=== PATIENT | female | born 1980 | race Caucasian/White ===

== ENCOUNTER 2018-01-15 12:46 | Emergency (ER) | payer MEDICAID ==
[~2018-01-15] VITALS: Ht 170.2 cm; Wt 62.5 kg
[2018-01-15] MEDS ORDERED: PROPARACAINE OPHTH 0.5%, 15ML EACHEYE ONE (14:00)
[2018-01-15] MEDS ORDERED: FLUORESCEIN OPHTHALMIC 1 MG STRIP EACHEYE ONE (14:00)
[2018-01-15] MEDS ORDERED: PROPARACAINE OPHTH 0.5%, 15ML ONE (16:28)
[2018-01-15] MEDS ORDERED: FLUORESCEIN OPHTHALMIC 1 MG STRIP ONE (16:28)
[2018-01-15 16:36] LABS: MICROSCOPIC NOT IND
[2018-01-15 16:42] LABS: CULTURE INDICATED? NO
[2018-01-15 18:24] LABS: CLUE CELLS NONE SEEN (NONE SEEN); WET PREP WBCS NONE SEEN (FEW)
[2018-01-15 18:31] VITALS: BP 111/74
== END 2018-01-15 18:53 | disposition home or self-care (01) ==
LOC: ED 18:11
DX: H10.212 Acute toxic conjunctivitis, left eye (principal); N76.0 Acute vaginitis; B96.89 Other specified bacterial agents as the cause of diseases classified elsewhere
CPT/HCPCS: 36415; 81003; 81025; 84703; 87210; 87491; 87591; 87808; 99284